=== PATIENT | male | born 1995 | race Caucasian/White ===

== ENCOUNTER 2016-11-20 01:49 | Emergency (ER) | payer BC ==
[~2016-11-20] VITALS: Ht 175.3 cm; Wt 80.0 kg
[2016-11-20 01:51] VITALS: Ht 175.3 cm; Wt 80.0 kg
--- NOTE | 2016-11-20 04:38 | ERD ---
ER Documentation Chief Complaint Date/Time DATE: 11/20/16 TIME: 04:36 Chief Complaint r wrist pain after going to the gym HPI This is 21-year-old male who presents to the emergency department today complaining of right wrist pain after injuring himself while lifting weights earlier in the evening while at the gym. Patient states that he felt something pop in his wrist he is concerned because he thinks that one of his bones are sticking out. States he has had wrist pain in the past. Denies any fevers or chills. ROS All systems reviewed and are negative except as per history of present illness. Medications Home Meds Active Scripts Acetaminophen* (Tylophen*) 500 Mg Capsule, 1 CAP PO Q6H Y for PAIN AND OR ELEVATED TEMP, #30 CAP Prov:ALEXANDRA WARREN PA-C 11/20/16 Naproxen* (Naprosyn*) 500 Mg Tablet, 500 MG PO BID Y for PAIN AND/OR INFLAMMATION, #30 TAB Prov:ALEXANDRA WARREN PA-C 11/20/16 Allergies Allergies: Coded Allergies: No Known Allergies (Verified Allergy, Mild, 09/08/14) PMhx/Soc History of Surgery: No Anesthesia Reaction: No Hx Neurological Disorder: No Hx Respiratory Disorders: No Hx Cardiac Disorders: No Hx Psychiatric Problems: No Hx Miscellaneous Medical Probl: No Hx Alcohol Use: No Hx Substance Use: No Hx Tobacco Use: No Physical Exam Vitals Vital Signs Date Time Temp Pulse Resp B/P Pulse Ox O2 Delivery O2 Flow Rate FiO2 11/20/16 01:51 97.8 84 18 134/60 98 Physical Exam Const: No acute distress Head: Atraumatic Eyes: Normal Conjunctiva ENT: Normal External Ears, Nose and Mouth. Neck: Full range of motion..~ No meningismus. Resp: Clear to auscultation bilaterally Cardio: Regular rate and rhythm, no murmurs Abd: Soft, non tender, non distended. Normal bowel sounds Skin: No petechiae or rashes Back: No midline or flank tenderness MSK left wrist For me. No effusion. No ecchymosis. Full active range of motion at elbow. Tender to palpation with wrist flexion and extension. Pulses 2+. Distal neurovascularly intact. No scaphoid tenderness. Neur: Awake and alert Psych: Normal Mood and Affect Procedures/MDM This is 21-year-old male who presents from her department today complaining of right wrist pain after an injury he sustained earlier this evening while at the gym. Patient was concerned that something had popped out of place when he was at the gym and therefore did obtain images. Per the radiology report images of the right wrist are unremarkable. No evidence of acute fracture dislocation . Patient is afebrile and otherwise well- appearing. Low suspicion for septic joint or gout. Patient was placed in a wrist splint.atient declined pain medication here in the emergency department. He'll be given a prescription for Naprosyn and Tylenol for home. At this time the patient is stable for discharge and outpatient management. Patient should follow up with their PCP in the next 1-2 days. They may return to the emergency department sooner for any persistent or worsening of symptoms. Patient understood and agreed with the plan. Departure Diagnosis: Primary Impression: Wrist injury Encounter type: initial encounter Laterality: right Qualified Code: S69.91XA - Wrist injury, right, initial encounter Condition: Fair ALEXANDRA WARREN PA-C Nov 20, 2016 04:37
--- NOTE | 2016-11-20 04:43 | RADRPT ---
PROCEDURE: Right wrist. CLINICAL INDICATION: Pain. TECHNIQUE: Three views including PA, lateral and oblique views of the right wrist were performed. COMPARISON: None. FINDINGS: There is no fracture, dislocation or bone destruction. The joint spaces are within normal limits. Bone mineralization is within normal limits. There is no radiopaque foreign body or abnormal calcif ication. IMPRESSION: No evidence of fracture. .Van You MD, MD Date Time Electronically viewed and signed by .Van You MD, on 11/20/2016 04:43 .T/
[2016-11-20] MEDS ORDERED: NAPR-260 PO (04:58)
[2016-11-20] MEDS ORDERED: ACET500C5 PO (04:58)
== END 2016-11-20 05:10 | disposition home or self-care (01) ==
LOC: FTE 01:49
DX: S69.91XA Unspecified injury of right wrist, hand and finger(s), initial encounter (principal); X50.0XXA Overexertion from strenuous movement or load, initial encounter; Y92.39 Other specified sports and athletic area as the place of occurrence of the external cause
CPT/HCPCS: 29125; 73110; Z7502

== ENCOUNTER 2017-08-23 01:04 | Emergency (ER) | payer SELFPAY ==
[~2017-08-23] VITALS: Ht 170.2 cm; Wt 81.0 kg
[~2017-08-23 01:04] MED LIST: ACET500C5 PO; NAPR-260 PO
[2017-08-23 01:09] VITALS: Ht 170.2 cm; Wt 81.0 kg
[2017-08-23] MEDS ORDERED: KETOROLAC 60 MG INJ IM STA (01:45)
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
[2017-08-23] MEDS ORDERED: CYCL-319 PO (02:44)
[2017-08-23] MEDS ORDERED: IBUP800T25 PO (02:44)
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
[2017-08-23 02:55] VITALS: BP 128/74; PULSE 66; RESP 20; TEMP 98.7
== END 2017-08-23 02:56 | disposition home or self-care (01) ==
LOC: FTE 01:04
DX: S40.012A Contusion of left shoulder, initial encounter (principal); S20.212A Contusion of left front wall of thorax, initial encounter; V49.49XA Driver injured in collision with other motor vehicles in traffic accident, initial encounter
CPT/HCPCS: 71020; 72040; 73030; 96372; 99284; J1885